=== PATIENT | male | born 1960 | race Caucasian/White ===

== ENCOUNTER 2021-03-10 22:50 | Emergency (ER) | payer OTHER ==
[~2021-03-10] VITALS: Ht 175.3 cm; Wt 77.1 kg
[2021-03-11 09:30] VITALS: BP 142/80
[2021-03-11] MEDS ORDERED: BACITRACIN TOP OINT 1 UD PKG TOP ONE (09:45)
== END 2021-03-11 10:48 | disposition home or self-care (01) ==
LOC: ER 22:50 → EDBD 22:50 → ER 03-11 10:48
DX: S01.01XA Laceration without foreign body of scalp, initial encounter (principal); S09.8XXA Other specified injuries of head, initial encounter; R51.9 Headache, unspecified; I10 Essential (primary) hypertension; F17.210 Nicotine dependence, cigarettes, uncomplicated; Y04.8XXA Assault by other bodily force, initial encounter; Y93.89 Activity, other specified; Y92.89 Other specified places as the place of occurrence of the external cause; Y99.8 Other external cause status
CPT/HCPCS: 70450